=== PATIENT | female | born 1970 | race Caucasian/White ===

== ENCOUNTER → 2019-08-12 16:08 | Outpatient (BNVA) | payer BC, SELFPAY | PROVIDERS: Family Provider Nurse Practitioner; Visit Provider Nurse Practitioner Family | DX: R19.7 Diarrhea, unspecified (principal) | CPT/HCPCS: 80053; 85025 ==

== ENCOUNTER → 2019-08-13 09:49 | Outpatient (BNVA) | payer BC, SELFPAY | PROVIDERS: Family Provider Nurse Practitioner; Visit Provider Nurse Practitioner | DX: R19.7 Diarrhea, unspecified (principal) | CPT/HCPCS: 87506 ==

== ENCOUNTER → 2020-02-20 16:17 | Outpatient (BNVA) | payer BC, SELFPAY | PROVIDERS: Family Provider Nurse Practitioner; Visit Provider Nurse Practitioner | DX: Z20.828 Contact with and (suspected) exposure to other viral communicable diseases (principal) | CPT/HCPCS: 87635 ==

== ENCOUNTER → 2020-06-23 16:23 | Outpatient (BNVA) | payer BC, SELFPAY | PROVIDERS: Family Provider Nurse Practitioner; Visit Provider Nurse Practitioner | DX: I10 Essential (primary) hypertension (principal); M54.5 Low back pain; M79.605 Pain in left leg; M79.632 Pain in left forearm; F41.9 Anxiety disorder, unspecified; E55.9 Vitamin D deficiency, unspecified | CPT/HCPCS: 81000; 82306; 82607 ==

== ENCOUNTER 2020-06-24 15:09 | Outpatient (CLI) | payer BC, SELFPAY ==
--- NOTE | 2020-06-24 13:15 | XR_ITS ---
WS: [id number] LUMBAR SPINE TECHNIQUE: 3 views of the lumbar spine CLINICAL INFORMATION: M54.5 - Low back pain COMPARISON: None. FINDINGS: Slight lumbar curve convex left. No acute compression fractures. Mild disc space narrowing L3-L4 and L5-S1. Moderate facet arthropathy lower lumbar spine. XR/XR lumbar spine 2-3V* [id number] IMPRESSION: Mild spondylitic changes. No acute lumbar spine findings.
--- NOTE | 2020-06-24 13:45 | XR_ITS ---
WS: [id number] FOREARM LEFT TECHNIQUE: 2 views of the left forearm CLINICAL INFORMATION: M79.632 - Pain in left forearm COMPARISON: None. FINDINGS: No significant elbow effusion. Normal anterior fat pad. No evidence of supra condylar fracture. No ev idence of radial head dislocation. The radius and ulna appear normal. No visualized forearm fractures . Normal radiocarpal joint. XR/XR forearm LT 2V [id number] IMPRESSION: Normal left forearm.
== END 2020-06-24 15:10 | disposition home or self-care (01) ==
PROVIDERS: Family Provider Nurse Practitioner; Visit Provider Nurse Practitioner
DX: M54.5 Low back pain (principal); M79.632 Pain in left forearm
CPT/HCPCS: 72100; 73090

== ENCOUNTER → 2021-06-08 16:20 | Outpatient (BNVA) | payer BC, SELFPAY | PROVIDERS: Family Provider Nurse Practitioner; Visit Provider Nurse Practitioner Family | DX: M25.521 Pain in right elbow (principal); S59.909A Unspecified injury of unspecified elbow, initial encounter; F41.9 Anxiety disorder, unspecified | CPT/HCPCS: 73080 ==

== ENCOUNTER 2021-06-29 06:00 | Outpatient (RCR) | payer BC, SELFPAY | END 2021-07-10 23:59 | disposition home or self-care (01) | LOC: TPT 06:00 | PROVIDERS: Referring Provider Nurse Practitioner Family; Visit Provider Nurse Practitioner Family | DX: S59.901D Unspecified injury of right elbow, subsequent encounter (principal); X58.XXXD Exposure to other specified factors, subsequent encounter | CPT/HCPCS: 97032; 97110; 97140; 97162 ==

== ENCOUNTER 2021-07-11 06:00 | Outpatient (RCR) | payer BC, SELFPAY | END 2021-08-10 23:59 | disposition home or self-care (01) | LOC: TPT 06:00 | PROVIDERS: Referring Provider Nurse Practitioner Family; Visit Provider Nurse Practitioner Family | DX: S59.901D Unspecified injury of right elbow, subsequent encounter (principal); X58.XXXD Exposure to other specified factors, subsequent encounter; M25.521 Pain in right elbow | CPT/HCPCS: 97032; 97035; 97110; 97140 ==

== ENCOUNTER 2021-08-11 06:00 | Outpatient (RCR) | payer BC, SELFPAY | END 2021-08-26 23:59 | disposition home or self-care (01) | LOC: TPT 06:00 | PROVIDERS: Referring Provider Nurse Practitioner Family; Visit Provider Nurse Practitioner Family | DX: M25.521 Pain in right elbow (principal) | CPT/HCPCS: 97032; 97035; 97110 ==

== ENCOUNTER → 2022-12-14 14:57 | Outpatient (BNVA) | payer BC, SELFPAY | PROVIDERS: PCP Nurse Practitioner Family; Visit Provider Nurse Practitioner | DX: M54.50 Low back pain, unspecified (principal); M79.604 Pain in right leg; M79.605 Pain in left leg; F41.9 Anxiety disorder, unspecified | CPT/HCPCS: 72100; 72170 ==

== ENCOUNTER 2023-03-17 17:13 | Emergency (ER) | payer BC, SELFPAY ==
[2023-03-17 17:36] VITALS: BP 182/94; PULSE 78; RESP 18; O2SAT 100
--- NOTE | 2023-03-17 18:38 | CTR_ITS ---
PROCEDURE INFORMATION: Exam: CT Cervical Spine Without Contrast Exam date and time: 03/17/2023 6:48 PM Age: 52 years old Clinical indication: Injury or trauma; Fall; Blunt trauma; Additional info: Pain, fall TECHNIQUE: Imaging protocol: Computed tomography of the cervical spine without contrast. Radiation optimization: All CT scans at this facility use at least one of these dose optimization techniques: automated exposure control; mA and/or kV adjustment per patient size (includes targeted exams where dose is matched to clinical indication); or iterative reconstruction. COMPARISON: No relevant prior studies available. RADIATION DOSE METRICS: Total DLP (mGy-cm): 181.87 FINDINGS: Bones/joints: No acute fracture. Normal alignment. No significant disc bulge or herniation. No severe spinal canal stenosis. No significant neural foraminal narrowing. There is moderate degenerative disease of the spine with disc space narrowing at the C5-C6 level. Lungs: Lung apices are normal. Lymph nodes: There are multiple scattered lymph nodes which are not enlarged by CT criteria. Soft tissues: Unremarkable. CT/CT cervical spin wo con* [id number] IMPRESSION: No acute findings.
--- NOTE | 2023-03-17 18:38 | CTR_ITS ---
PROCEDURE INFORMATION: Exam: CT Thoracic Spine Without Contrast Exam date and time: 03/17/2023 6:52 PM Age: 52 years old Clinical indication: Injury or trauma; Fall; Blunt trauma (contusions or hematomas); Additional info: Fall, trauma, pain TECHNIQUE: Imaging protocol: Computed tomography of the thoracic spine without contrast. Radiation optimization: All CT scans at this facility use at least one of these dose optimization techniques: automated exposure control; mA and/or kV adjustment per patient size (includes targeted exams where dose is matched to clinical indication); or iterative reconstruction. COMPARISON: CT cervical spin wo con* [id number] 03/17/2023 6:48 PM RADIATION DOSE METRICS: Total DLP (mGy-cm): 463.31 FINDINGS: Bones/joints: No acute fracture. Normal alignment. No significant disc bulge or herniation. No severe spinal canal stenosis. No significant neural foraminal narrowing. There is severe degenerative disease of the spine. There is a 4 mm sclerotic focus in the T9 vertebral body, this likely represents a bony island. Soft tissues: Unremarkable. Lungs: The visualized lungs demonstrate scarring in the apices bilaterally. CT/CT thoracic spin wo con* [id number] IMPRESSION: Unremarkable CT thoracic spine.
--- NOTE | 2023-03-17 18:38 | CTR_ITS ---
PROCEDURE INFORMATION: Exam: CT Lumbar Spine Without Contrast Exam date and time: 03/17/2023 6:55 PM Age: 52 years old Clinical indication: Injury or trauma; Fall; Blunt trauma (contusions or hematomas); Additional info: Fall, trauma, pain TECHNIQUE: Imaging protocol: Computed tomography of the lumbar spine without contrast. Radiation optimization: All CT scans at this facility use at least one of these dose optimization techniques: automated exposure control; mA and/or kV adjustment per patient size (includes targeted exams where dose is matched to clinical indication); or iterative reconstruction. COMPARISON: CR XR lumbar spine 2-3V* [id number] 12/14/2022 3:00 PM RADIATION DOSE METRICS: Total DLP (mGy-cm): 826.12 FINDINGS: Bones/joints: No acute fracture. Normal alignment. No significant disc bulge or herniation. No severe spinal canal stenosis. No significant neural foraminal narrowing. There are bony islands noted in the right iliac bone. Kidneys and ureters: The visualized kidneys are unremarkable. Stomach and bowel: There is an extensive amount of feces in the visualized colon indicating constipation. Soft tissues: Unremarkable. CT/CT lumbar spine wo con* [id number] IMPRESSION: No acute findings.
--- NOTE | 2023-03-17 19:59 | W.ED.NECK ---
HPI - Neck Pain/Injury General: Chief Complaint: Neck Pain/Injury Stated Complaint: neck pains Time Seen by Provider: 03/17/23 17:48 History of Present Illness: Ms Sosa is a 52-year-old female that presents to the emergency department with complaints of neck and back pain. She says that she slipped and fell in the snow covered grass. She states she fell straight on her butt and felt a jolt in her neck. She denies striking her head or loss of consciousness. She has been up ambulatory since the event but has become more sore as time went on Associated symptoms: Denies dysphagia, difficulty walking or headache(s) Review of Systems Const: Denies: fever(s), body aches or fatigue Eyes: Denies: eye discharge ENMT: Denies: odynophagia, hoarseness, nasal discharge, nasal congestion or post nasal drip Card: Reports: other (Hypertension); Denies: chest pain or swelling of feet/ankles Resp: Denies: dyspnea or non-productive cough GI: Denies: abdominal pain, dysphagia, change in bowel habits or hematochezia : Denies: difficulty voiding or hematuria Musc: Reports: neck pain and back pain Skin/Breast: Denies: rash or pruritus Neuro: Denies: headache(s), weakness in extremities or difficulty walking Psych: Denies: irritability or suicidal ideation Endo: Reports: other (No DM or thyroid ) Prateek/Lymph: Denies: easy bruising, easy bleeding or enlarged lymph nodes All/Imm: Denies: seasonal rhinorrhea PFSH ED PFSH: Medical History Essential (primary) hypertension Spondylitis Surgical History History of bilateral salpingectomy Hx of cholecystectomy (~2010) Hx of removal of cyst Family History Other Diabetes Hypertension Denies family history of Suicide Bleeding disorder Cancer Stroke Social History Smoking and tobacco/nicotine status: never used tobacco/nicotine Second hand smoke exposure: No Alcohol intake: never Substance/Drug Use: never Adopted: No Caregiver/support person: No Lives independently: Yes Household members: spouse Housing: House Marital status: Number of children: 3 Highest education level completed: High School Graduate service: No Current occupational status: employed Current occupation: [employer] Pets and animals: Yes Do you think of yourself as: Straight/Heterosexual Current gender identity: Female Physical Exam Const: COMMON NORMALS: no acute distress, patient oriented x3 and alert GENERAL APPEARANCE: cooperative ORIENTATION/CONSCIOUSNESS: Yes awake, Yes oriented to person, Yes oriented to place and Yes oriented to time Neck/C-Spine: COMMON NORMALS: full ROM GENERAL: Yes normal visual inspection CERVICAL SPINE: Yes cervical ROM normal, Yes normal cervical lordosis, Yes Paracervical muscle tenderness left>right and Yes Paracervical spasm Lymph: LYMPHATIC: no lymphadenopathy noted Chest: COMMONS NORMALS: normal inspection of the chest Breast/axilla inspection: Yes no chest deformity, asymmetry, normal contours, no nodules, masses, tenderness Resp: COMMON NORMALS: normal respiratory effort, No retractions and No use of accessory muscles EFFORT & INSPECTION: Yes able to speak in complete sentences and Yes symmetric chest movement Cardio: COMMON NORMALS: regular rate and Peripheral pulses 2+ throughout RATE: regular rate PERIPHERAL PULSES: Peripheral pulses 2+ throughout GI: COMMON NORMALS: Soft to palpation and non-tender INSPECTION: Yes normal to inspection PALPATION: Yes Soft to palpation Back/Pelvis: THORACIC SPINE/UPPER BACK: Yes normal to inspection, Yes thoracic ROM normal and Yes thoracic spinal tenderness (Throughout and midline) LUMBAR SPINE/LOWER BACK: Yes normal to inspection, Yes lumbar ROM normal, Yes lumbar spinal tenderness (Throughout and midline) and Yes paraspinal muscle tenderness Extremity: COMMON NORMALS: normal to inspection GENERAL: Yes normal exam except as noted Neuro: COMMON NORMALS: patient oriented x3 SENSORIUM/ORIENTATION: Yes alert, Yes oriented to person, Yes oriented to place and Yes oriented to time CRANIAL NERVES: Yes CN normal except as noted Psych: COMMON NORMALS: mental status grossly normal, Normal thought process present, cooperative, activity/motor behavior normal, denies homicidal ideation and denies suicidal ideation THOUGHT PROCESS: Normal thought process present Skin: COMMON NORMALS: no rashes or lesions noted, no wounds and turgor normal GENERAL SKIN EXAM: no rashes or lesions noted and turgor normal Course Vital Signs: Vital signs: Vital Signs Pulse Rate 78 03/17/23 17:36 Respiratory Rate 18 03/17/23 17:36 Blood Pressure 182/94 03/17/23 17:36 Pulse Oximetry 100 03/17/23 17:36 Oxygen Delivery Me thod Room Air 03/17/23 17:36 MDM - Neck Pain/Injury Medical Decision Making Patient was evaluated today in the emergency department for neck and back pain. Pain occurred when she had a fall landing on her butt. She states that it was a hard fall and she felt a jolt in the neck. At the time of the event she developed a tingling sensation in her neck around her SCM and into her face. This is resolved so. Patient underwent CT imaging of her cervical, thoracic, lumbar spine. Imaging reveals no acute findings. There is spondylosis but no fractures, step-offs, alignment abnormality I believe patient's complaints are largely muscle spasms?tenderness. She did have questionable radiculopathy of the upper cervical (c2/c3 distributions) that followed immediately after the trauma and has been resolving. I advised patient to use rest, ice and heat, NSAIDs and Tylenol. She is to return to the emergency department for new, concerning, worsening symptoms Lab Data Radiology Impressions Cervical Spine CT 03/17/23 18:38 IMPRESSION: No acute findings. Lumbar Spine CT 03/17/23 18:38 IMPRESSION: No acute findings. Thoracic Spine CT 03/17/23 18:38 IMPRESSION: Unremarkable CT thoracic spine. All radiology interpretation(s) finalized by discharge Discharge Plan Discharge Patient Disposition: Home Clinical Impression: Fall, Strain of neck muscle, Whiplash injury to neck, Musculoskeletal neck pain Condition: Stable Prescriptions: No Action metoprolol tartrate 50 mg tablet 50 mg PO DAILY multivitamin [Daily Multi-Vitamin] Tablet 1 tab PO DAILY venlafaxine [Effexor XR] 37.5 mg capsule,extended release 24hr 37.5 mg PO DAILY Qty: 30 5RF tizanidine [Zanaflex] 4 mg tablet 4 mg PO BID PRN (Reason: muscle spasticity) Qty: 60 0RF cholecalciferol (vitamin D3) 125 mcg (5,000 unit) capsule 125 mcg PO DAILY Qty: 30 2RF Discharge Orders: Discharge ED (Routine); Ordered 03/17/23 Ordered By: Jolie Martínez Referrals: Marcella Garcia FNP-C [Primary Care Provider] - Discharge Diet: Advance as tolerated Discharge Activity: Resume usual activity Patient Instructions: Cervical Strain (ED), Pain Management Activity Restrictions/Additional Instructions: As discussed, there are no fractures present. Please use rest, ice, heat, NSAIDs and Tylenol for pain control. Gentle stretching when you feel you are able. Otherwise return to the emergency department for new concerning or worsening symptoms Coding Level of Care Code ED Regional Director Of Admissions for Zane Fonseca
== END 2023-03-17 20:34 | disposition home or self-care (01) ==
PROVIDERS: Emergency Provider Nurse Practitioner; PCP Nurse Practitioner Family
DX: S16.1XXA Strain of muscle, fascia and tendon at neck level, initial encounter (principal); S13.4XXA Sprain of ligaments of cervical spine, initial encounter; I10 Essential (primary) hypertension; W00.0XXA Fall on same level due to ice and snow, initial encounter
CPT/HCPCS: 72125; 72128; 72131; 99284

== ENCOUNTER → 2024-07-11 15:43 | Outpatient (BNVA) | payer BC, SELFPAY | PROVIDERS: PCP Nurse Practitioner; Visit Provider Nurse Practitioner | DX: I10 Essential (primary) hypertension (principal); E55.9 Vitamin D deficiency, unspecified | CPT/HCPCS: 80053; 80061; 82306; 82607; 84443; 85025 ==